=== PATIENT | female | born 1960 | race Caucasian/White ===

== ENCOUNTER → 2018-04-28 | Day surgery (SDC) | payer SELFPAY ==
[~2018-04-28] VITALS: Ht 154.9 cm; Wt 73.0 kg
[~2018-04-28] MED LIST: ACETAZOLAMIDE SODIUM 500MG/VIAL IV ONE; ACETYLCHOLINE CHLORIDE INTRAOCULAR SOLUTION 1:100 ELECTROLYTE DILUENT IO ONE; BALANCED SALT IRRIG SOLN 15ML ONE; BALANCED SALT IRRIG SOLN COMB1 500ML OP ONE; BUPIVACAINE HCL/PF 0.75% (7.5MG/ML) 10ML ONE; CEFAZOLIN SODIUM 1000MG/VIAL ONE; CIPROFLOXACIN 0.3% OPHTH SOLN 2.5ML ONE; DIPHENHYDRAMINE 50MG/ML VIAL ONE; FENTANYL CITRATE/PF 50MCG/ML 2ML VIAL ONE; HYDROMORPHONE HCL/PF 2MG/ML CPJ IV PRN; LIDOCAINE HCL 2%/EPINEPHRINE 1:100,000 20 ML VIAL INFIL ONE; LIDOCAINE HCL/PF 2% 20 MG/ML 10ML VIAL ONE; MIDAZOLAM HCL 2 MG/2 ML VIAL ONE; MORPHINE SULFATE 4 MG/ML CPJ (NOT FOR IM USE) IV ONE; NEO/POLYMYX B SULF/DEXAMETH OPHTH OINT 3.5GM ONE; ONDANSETRON HCL 4MG/2ML INJ IV ONE; PREDNISOLONE ACETATE 1% OPHTH DROPS 1ML ONE; PROPOFOL 200MG/20ML VIAL IV ONE; SODIUM CHLORIDE 0.9% 10ML VIAL ONE; TETRACAINE 0.5% OPHTH DROPS 4ML ONE
[2018-04-28 11:22] LABS: BASOPHILS % 0.4 % (0.0-2.0); EOSINOPHILS % 1.3 % (0.0-5.0); HEMATOCRIT. 39.5 % (36.0-48.0); HEMOGLOBIN. 13.5 g/dL (12.0-16.0); LYMPHOCYTES % 55.5 % (20.0-50.0); MEAN CORPUSCULAR HEMOGLOBIN 32.2 pg (28.0-32.0); MONOCYTES % 4.3 % (2.0-8.0); NEUTROPHILS % 38.5 % (40.0-76.0); PLATELET 166 x1000/uL (130-400); RED CELL DISTRIBUTION WIDTH 12.9 % (11.6-14.6)
[2018-04-28 11:27] LABS: CHLORIDE 108 mEq/L (98-107)
[2018-04-28 11:30] VITALS: BP 145/68
== END | disposition home or self-care (01) ==
LOC: ER 09:15 → OR 14:32
PROVIDERS: ATTEND Ophthalmology
DX: H40.32X0 Glaucoma secondary to eye trauma, left eye, stage unspecified (principal); S05.8X2A Other injuries of left eye and orbit, initial encounter; H21.02 Hyphema, left eye; H21.1X2 Other vascular disorders of iris and ciliary body, left eye; Y04.0XXA Assault by unarmed brawl or fight, initial encounter; Y93.9 Activity, unspecified; Y92.89 Other specified places as the place of occurrence of the external cause; Y99.9 Unspecified external cause status; E11.65 Type 2 diabetes mellitus with hyperglycemia
CPT/HCPCS: 36415; 66170; 67299; 71045; 80053; 84484; 85025; 93005; J0690; J1200; J2250; J2704; J3010; J1120; J3490